=== PATIENT | male | born 1960 | race Two or more races ===

== ENCOUNTER 2016-11-27 16:55 | Inpatient (IN) | payer OTHER ==
[2016-11-27 17:38] VITALS: BMI 29.7
--- NOTE | 2016-11-27 18:26 | HP ---
Admission ROS S - [facility] Chief Complaint: I WANT TO GO TO REHAB Allergies/Adverse Reactions: Allergies Allergy/AdvReac Type Severity Reaction Status Date / Time No Known Allergies Allergy Verified 11/27/16 17:50 History of Present Illness: 56 YEARS OLD MALE WITH LONG HISTORY OF ALCOHOL NICOTINE DEPENDENCE DENIES MEDICAL ISSUE HAS SCHIZOPHRENIA IS ADMITTED TO REHAB Exam Limitations: No Limitations - Ebola screening Have you traveled outside of the country in the last 21 days: No Have you had contact with anyone from an Ebola affected area: No Have you been sick,other than usual withdrawal symptoms: No Do you have a fever: No - Review of Systems Constitutional: No Symptoms Reported EENT: reports: No Symptoms Reported Respiratory: reports: No Symptoms reported Cardiac: reports: No Symptoms Reported GI: reports: No Symptoms Reported : reports: No Symptoms Reported Musculoskeletal: reports: No Symptoms Reported Integumentary: reports: No Symptoms Reported Neuro: reports: No Symptoms reported Endocrine: reports: No Symptoms Reported Hematology: reports: No Symptoms Reported Psychiatric: reports: No Sypmtoms Reported, Judgement Intact, Mood/Affect Appropiate, Orientated x3 Other Systems: Reviewed and Negative Patient History - Patient Medical History Hx Anemia: No Hx Asthma: No Hx Chronic Obstructive Pulmonary Disease (COPD): No Hx Cancer: No Hx Cardiac Disorders: No Hx Congestive Heart Failure: No Hx Hypertension: No Hx Hypercholesterolemia: No Hx Pacemaker: No HX Cerebrovascular Accident: No Hx Seizures: No Hx Dementia: No Hx Diabetes: No Hx Gastrointestinal Disorders: No Hx Liver Disease: No Hx Genitourinary Disorders: No Hx Sexually Transmitted Disorders: No Hx Renal Disease (ESRD): No Hx Thyroid Disease: No Hx Human Immunodeficiency Virus (HIV): No (NEGATIVE HX) Hx Hepatitis C: No Hx Depression: No Hx Suicide Attempt: No Hx Bipolar Disorder: No Hx Schizophrenia: Yes - Patient Surgical History Past Surgical History: Yes Hx Neurologic Surgery: No Hx Cataract Extraction: No Hx Cardiac Surgery: No Hx Lung Surgery: No Hx Breast Surgery: Yes (R breast cyst removed) Hx Breast Biopsy: No Hx Abdominal Surgery: No Hx Appendectomy: No Hx Cholecystectomy: No Hx Genitourinary Surgery: No Hx Orthopedic Surgery: No Other Surgical History: bunionectomy 07/2015 Anesthesia Reaction: No - PPD History Previous Implant?: Yes Documented Results: Negative w/proof Implanted On Prior R Admission?: Yes Date: 05/01/16 Results: 0mm PPD to be Administered?: No - Smoking Cessation Smoking history: Current every day smoker Have you smoked in the past 12 months: Yes Aproximately how many cigarettes per day: 2 Cigars Per Day: 0 Hx Chewing Tobacco Use: No Initiated information on smoking cessation: Yes 'Breaking Loose' booklet given: 11/27/16 - Substance & Tx. History Hx Alcohol Use: Yes Hx Substance Use: Yes Substance Use Type: Alcohol, Cocaine Hx Substance Use Treatment: Yes (04/26/2016-05/21/2016) - Substances Abused Alcohol Route: Oral Frequency: Daily Amount used: 10 CANS Age of first use: 17 Date of Last Use: 11/22/16 Heroin Route: Inhalation Frequency: Daily Amount used: 1 BAG Age of first use: 21 Date of Last Use: 11/22/16 Cocaine Route: Smoking Frequency: Daily Amount used: 20 BAGS Age of first use: 17 Date of Last Use: 11/22/16 Family Disease History - Family Disease History Family Disease History: Diabetes: Mother, CA: Sister (), Other: Father ( NO CONTACT), Brother (alcohol) Admission Physical Exam [facility] - Vital Signs Vital Signs: Vital Signs - 24 hr 11/27/16 17:36 Temperature 98.8 F Pulse Rate 96 H Respiratory 20 Rate Blood Pressure 120/64 - Physical General Appearance: Yes: No Apparent Distress, Nourished, Appropriately Dressed HEENTM: Yes: Hearing grossly Normal, Normal ENT Inspection, Normocephalic, Normal Voice Respiratory: Yes: Chest Non-Tender, Lungs Clear, Normal Breath Sounds, No Respiratory Distress, No Accessory Muscle Use Neck: Yes: Supple, Trachea in good position Breast: Yes: Breasts Symetrical Cardiology: Yes: Regular Rhythm, S1, S2, Tachycardia Abdominal: Yes: Normal Bowel Sounds, Non Tender, Soft Genitourinary: Yes: Within Normal Limits Back: Yes: Normal Inspection Musculoskeletal: Yes: full range of Motion, Gait Steady Extremities: Yes: Normal Capillary Refill, Normal Inspection, Normal Range of Motion, Non-Tender Neurological: Yes: Fully Oriented, Alert, Motor Strength 5/5, Normal Response, Depressed Affect Integumentary: Yes: Normal Color, Warm Lymphatic: Yes: Within Normal Limits - Diagnostic (1) Schizoaffective disorder Current Visit: Yes Status: Suspected Qualifiers: Schizoaffective disorder type: bipolar Qualified Code(s): F25.0 - Schizoaffective disorder, bipolar type (2) Nicotine dependence Current Visit: Yes Status: Acute Qualifiers: Nicotine product type: cigarettes Substance use status: in withdrawal Qualified Code(s): F17.213 - Nicotine dependence, cigarettes, with withdrawal (3) Alcohol dependence with uncomplicated withdrawal Current Visit: Yes Status: Acute (4) Cocaine dependence, uncomplicated Current Visit: Yes Status: Chronic Cleared for Admission [facility] - Detox or Rehab [facility] Level of Care: Observation Bed Detox Regimen/Protocol: Not Applicable Claeared for Rehab Admission: Yes [facility] Breath Alcohol Content Breath Alcohol Content: 0 Urine Drug Screen - Results Drug Screen Negative: No Urine Drug Screen Results: CARINE-Cocaine
[2016-11-27] MEDS ORDERED: MAG HYDROX/AL HYDROX/SIMETH 30 ML UNIT-DOSE CUP PO PRN (18:32)
[2016-11-27] MEDS ORDERED: NICOTINE POLACRILEX 2 MG GUM BC PRN (18:32)
[2016-11-27] MEDS ORDERED: MAGNESIUM CITRATE 300 ML BOTTLE PO PRN (18:32)
[2016-11-27] MEDS ORDERED: LOPERAMIDE HCL 2 MG CAPSULE PO PRN (18:32)
[2016-11-27] MEDS ORDERED: guaiFENesin/D-METHORPHAN HB 10 ML UNIT-DOSE CUPS PO PRN (18:32)
[2016-11-27] MEDS ORDERED: NICOTINE 14 MG/24 HOURS TOPICAL PATCH TD PRN (18:32)
[2016-11-27] MEDS ORDERED: ACETAMINOPHEN 325 MG TABLET (FP) PO PRN (18:32)
[2016-11-27] MEDS ORDERED: MAGNESIUM HYDROX 2400MG/30ML ORAL SUSPENSION 30 ML CUP PO PRN (18:32)
[2016-11-27] MEDS ORDERED: diphenhydrAMINE HCL 50 MG CAPSULE PO PRN (18:32)
[2016-11-27] MEDS ORDERED: P-EPHED 60MG/TRIPROLIDI 2.5MG TABLET PO PRN (18:32)
[2016-11-27] MEDS ORDERED: MENTHOL/PHENOL 1 EACH UD MM PRN (18:32)
[2016-11-27] MEDS ORDERED: hydrOXYzine PAMOATE 50 MG CAPSULE (FP) PO PRN (18:32)
[2016-11-27 21:07] LABS: URINE APPEARANCE CLEAR; URINE BILIRUBIN NEGATIVE (NEGATIVE); URINE BLOOD NEGATIVE (NEGATIVE); URINE COLOR AMBER; URINE GLUCOSE (UA) NEGATIVE (NEGATIVE); URINE KETONE TRACE (NEGATIVE); URINE LEUK ESTERASE NEGATIVE (NEGATIVE); URINE NITRITE NEGATIVE (NEGATIVE); URINE UROBILINOGEN NEGATIVE E.U./dl (0.2-1.0)
[2016-11-27 21:37] LABS: URINE PROTEIN 1+ (NEGATIVE)
[2016-11-27 21:39] LABS: URINE MUCUS MANY; URINE RBC 1 /hpf (0-3); URINE WBC <1 /hpf (3-5)
[2016-11-27] MEDS: QUEtiapine FUMARATE 100 MG TABLET (FP) PO SCH (21:41)
[2016-11-27] MEDS: THIAMINE HCL 100 MG TABLET (FP) PO SCH (21:42)
[2016-11-27] MEDS: QUEtiapine FUMARATE 25 MG TABLET (FP) PO SCH (21:42)
--- NOTE | 2016-11-28 09:56 | HP ---
Psychiatrist Admission - Data Date of interview: 11/28/16 Admission source: Self-referred Identifying data: This is one of the multiple [facility] for this 56 years old single Black male, unemployed on SSI, domiciled living with his mother Medical History: Significant for history of surgery for bunion removal right foot in Jul 2015 & removal of cyst right breast in 2000. Smokes 2 cigarettes daily Psychiatric History: Reports that he was diagnosed with ADHD, Mental Retardation , Schizophrenia, OCD, Anxiety, Depression and Personality Disorder. Reports multiple psychiatric admissions to various institutions, notably [facility] many times, [facility], [place], [facility] [place], [facility]. Reports receiving OPD care at [facility] at [address] [place] and he is prescribed Wellbutrin XL 300 mg po daily, Fluvoxamine 50 mg po HS, Seroquel 25 mg BID & 100 mg HS. When asked about history of suicide attempt, he denies any but told advertising copy writer that because of homelessness, on many occasions, he would tell stahh at hospital that he is suicidal in order to get admitted. At present, reports doing well and sleeping well with help of medications. Denies experiencing psychotic, manic or depressive symptoms as well as Si/Hi at present Physical/Sexual Abuse/Trauma History: Denies history of emotional, physical or sexual abuse as well as DV relationship Additional Comment: Reports history of multiple arrests including 4 felony convictions. Denies being on parole/probation at present Vital Signs: Vital Signs - 24 hr 11/27/16 11/28/16 11/28/16 17:36 00:30 03:30 Temperature 98.8 F Pulse Rate 96 H Respiratory 20 18 18 Rate Blood Pressure 120/64 11/28/16 06:49 Temperature 98.1 F Pulse Rate 80 Respiratory 18 Rate Blood Pressure 126/78 Allergies/Adverse Reactions: Allergies Allergy/AdvReac Type Severity Reaction Status Date / Time No Known Allergies Allergy Verified 11/27/16 17:50 Date of last physical exam: 11/27/16 Concur with the findings of this exam: Yes - Substance Abuse/Tx History Hx Alcohol Use: Yes Hx Substance Use: Yes Substance Use Type: Alcohol (Started drinking alcohol at age 17, consumes 10 cans daily. Last drink on 11/22/16), Cocaine (Started smoking crack cocaine at age 17, consumes 20 bags daily. Last smoked on 11/22/16), Heroin (Started using heroin at age 21, consumes one bag daily. Last used on 11/22/16) Hx Substance Use Treatment: Yes (2 previous inpt detox & 5 inpt rehab @ [facility]) - Admission Criteria Previous failed treatment: Yes Poor recovery environment: Yes Comorbidities: Yes Lacks judgement: Yes Mental Status Exam - Mental Status Exam Alert and Oriented to: Time, Place, Person Cognitive Function: Fair Patient Appearance: Well Groomed Mood: Hopeful, Euthymic Affect: Appropriate Patient Behavior: Cooperative Speech Pattern: Clear Voice Loudness: Normal Thought Process: Intact, Goal Oriented Thought Disorder: Present Hallucinations: Denies Suicidal Ideation: Denies Homicidal Ideation: Denies Insight/Judgement: Fair Sleep: Fair (with the pills) Appetite: Good Muscle strength/Tone: Normal Gait/Station: Normal Psychiatric Findings - Problem List (Waldo 1, 2,3) (1) Alcohol dependence with uncomplicated withdrawal Current Visit: Yes Status: Acute (2) Cocaine dependence, uncomplicated Current Visit: Yes Status: Chronic (3) Opioid abuse Current Visit: Yes Status: Acute (4) Nicotine dependence Current Visit: Yes Status: Acute Qualifiers: Nicotine product type: cigarettes Substance use status: in withdrawal Qualified Code(s): F17.213 - Nicotine dependence, cigarettes, with withdrawal (5) Schizoaffective disorder Current Visit: Yes Status: Suspected Qualifiers: Schizoaffective disorder type: bipolar Qualified Code(s): F25.0 - Schizoaffective disorder, bipolar type (6) OCD (obsessive compulsive disorder) Current Visit: No Status: Acute - Initial Treatment Plan Initial Treatment Plan: 1) Continue Wellbutrin XL 300 mg po daily, Seroquel 25 mg BID & 100 mg HS, Luvox 50 mg po HS. 2) Monitor progress
[2016-11-28 09:59] LABS: MCH 32.8 pg (25.7-33.7); MCHC 33.6 g/dl (32.0-35.9); MEAN CELL VOLUME 97.6 fl (80-96); MEAN PLT VOLUME 8.4 fl (7.5-11.1); PLATELET COUNT 197 K/MM3 (134-434); RDW 12.9 % (11.9-15.9); WHITE BLOOD COUNT 6.6 K/mm3 (4.0-10.0)
[2016-11-28 10:06] LABS: ALBUMIN 3.7 g/dl (3.4-5.0); ANION GAP 8 (8-16); CALCIUM 8.7 mg/dL (8.5-10.1); CO2 28 mmol/L (21-32); GLUCOSE,RANDOM 110 mg/dL (74-106)
[2016-11-28 10:09] LABS: ALK PHOS 108 U/L (45-117); BILIRUBIN,TOTAL 0.3 mg/dL (0.2-1.0); COCKROFT - GAULT 99.68; SGOT/AST 22 U/L (15-37); SGPT/ALT 27 U/L (12-78); TOT PROT 6.5 g/dl (6.4-8.2)
[2016-11-28] MEDS ORDERED: LABETALOL HCL 5 MG/1 ML (100MG/20 ML VIAL) ONE (10:11)
[2016-11-28] MEDS: PRENATAL VITAMINS W/ FOLIC ACID TABLET (FP) PO SCH (10:25)
[2016-11-28] MEDS: LORATADINE 10 MG TABLET PO SCH (10:25)
[2016-11-28] MEDS: QUEtiapine FUMARATE 25 MG TABLET (FP) PO SCH ×2 (10:26→21:34)
--- NOTE | 2016-11-28 10:36 | EKG ---
Test Reason : Blood Pressure : / mmHG Vent. Rate : 089 BPM Atrial Rate : 089 BPM P-R Int : 204 ms QRS Dur : 074 ms QT Int : 364 ms P-R-T Axes : 064 032 026 degrees QTc Int : 442 ms NORMAL SINUS RHYTHM NORMAL ECG NO PREVIOUS ECGS AVAILABLE Confirmed by WES CRUZ MD ([id number]) on 11/28/2016 10:36:21 AM Referred By: Confirmed By:WES CRUZ MD
[2016-11-28 11:14] LABS: HIV 1 & 2 AB NEGATIVE; HIV 1 AGp24 NEGATIVE
[2016-11-28] MEDS: THIAMINE HCL 100 MG TABLET (FP) PO SCH (21:33)
[2016-11-28] MEDS: QUEtiapine FUMARATE 100 MG TABLET (FP) PO SCH (21:34)
[2016-11-29] MEDS: LORATADINE 10 MG TABLET PO SCH (10:06)
[2016-11-29] MEDS: PRENATAL VITAMINS W/ FOLIC ACID TABLET (FP) PO SCH (10:06)
[2016-11-29] MEDS: QUEtiapine FUMARATE 25 MG TABLET (FP) PO SCH ×2 (10:06→21:44)
[2016-11-29] MEDS: QUEtiapine FUMARATE 100 MG TABLET (FP) PO SCH (21:44)
[2016-11-29] MEDS: THIAMINE HCL 100 MG TABLET (FP) PO SCH (21:44)
[2016-11-29] MEDS: IBUPROFEN 400 MG TABLET (FP) PO PRN (22:33)
[2016-11-30] MEDS: LORATADINE 10 MG TABLET PO SCH (10:24)
[2016-11-30] MEDS: QUEtiapine FUMARATE 25 MG TABLET (FP) PO SCH ×2 (10:24→21:39)
[2016-11-30] MEDS: PRENATAL VITAMINS W/ FOLIC ACID TABLET (FP) PO SCH (10:24)
[2016-11-30] MEDS: QUEtiapine FUMARATE 100 MG TABLET (FP) PO SCH (21:39)
[2016-11-30] MEDS: THIAMINE HCL 100 MG TABLET (FP) PO SCH (21:39)
[2016-12-01] MEDS: PRENATAL VITAMINS W/ FOLIC ACID TABLET (FP) PO SCH (10:13)
[2016-12-01] MEDS: LORATADINE 10 MG TABLET PO SCH (10:14)
[2016-12-01] MEDS: QUEtiapine FUMARATE 25 MG TABLET (FP) PO SCH ×2 (10:14→21:38)
[2016-12-01] MEDS: QUEtiapine FUMARATE 100 MG TABLET (FP) PO SCH (21:38)
[2016-12-01] MEDS: THIAMINE HCL 100 MG TABLET (FP) PO SCH (21:38)
[2016-12-02] MEDS: PRENATAL VITAMINS W/ FOLIC ACID TABLET (FP) PO SCH (10:24)
[2016-12-02] MEDS: QUEtiapine FUMARATE 25 MG TABLET (FP) PO SCH ×2 (10:25→21:40)
[2016-12-02] MEDS: LORATADINE 10 MG TABLET PO SCH (10:26)
[2016-12-02] MEDS: QUEtiapine FUMARATE 100 MG TABLET (FP) PO SCH (21:39)
[2016-12-02] MEDS: THIAMINE HCL 100 MG TABLET (FP) PO SCH (21:39)
[2016-12-03] MEDS: QUEtiapine FUMARATE 25 MG TABLET (FP) PO SCH ×2 (10:06→21:46)
[2016-12-03] MEDS: LORATADINE 10 MG TABLET PO SCH (10:06)
[2016-12-03] MEDS: PRENATAL VITAMINS W/ FOLIC ACID TABLET (FP) PO SCH (10:06)
[2016-12-03] MEDS: THIAMINE HCL 100 MG TABLET (FP) PO SCH (21:45)
[2016-12-03] MEDS: QUEtiapine FUMARATE 100 MG TABLET (FP) PO SCH (21:46)
[2016-12-03] MEDS: IBUPROFEN 400 MG TABLET (FP) PO PRN (21:46)
[2016-12-04] MEDS: PRENATAL VITAMINS W/ FOLIC ACID TABLET (FP) PO SCH (10:20)
[2016-12-04] MEDS: LORATADINE 10 MG TABLET PO SCH (10:20)
[2016-12-04] MEDS: QUEtiapine FUMARATE 25 MG TABLET (FP) PO SCH ×2 (10:20→21:36)
--- NOTE | 2016-12-04 13:05 | PN ---
[facility] Progress Note Note: patient has been cutting nail of right 2nd didit,left 5th digit of toe,2 weeks ago stated nail of right 2nd digit nail became black and left 5th digit dorsalis pedis both feet strong s/p bunionectomy right rx bacitracin ointment bid advise follow up with pmd and slide fastener chain assembler upon discharge
--- NOTE | 2016-12-04 13:16 | PN ---
[facility] Progress Note Note: addendum initail glucose is 110,will do fasting glucose in am,bgm daily mother has dm history
[2016-12-04] MEDS ORDERED: BACITRACIN 0.9 GM PACKET ONE (13:54)
[2016-12-04] MEDS: BACITRACIN 0.9 GM PACKET TP SCH ×2 (15:00→21:36)
[2016-12-04] MEDS: QUEtiapine FUMARATE 100 MG TABLET (FP) PO SCH (21:36)
[2016-12-04] MEDS: THIAMINE HCL 100 MG TABLET (FP) PO SCH (21:36)
[2016-12-05] MEDS: QUEtiapine FUMARATE 25 MG TABLET (FP) PO SCH ×2 (10:20→22:23)
[2016-12-05] MEDS: PRENATAL VITAMINS W/ FOLIC ACID TABLET (FP) PO SCH (10:20)
[2016-12-05] MEDS: BACITRACIN 0.9 GM PACKET TP SCH ×2 (10:20→22:23)
[2016-12-05] MEDS: LORATADINE 10 MG TABLET PO SCH (10:20)
[2016-12-05] MEDS ORDERED: PT OWN MED DRAWER 7, Y5N ONE (11:18)
[2016-12-05] MEDS: IBUPROFEN 400 MG TABLET (FP) PO PRN (17:35)
[2016-12-05] MEDS: THIAMINE HCL 100 MG TABLET (FP) PO SCH (22:22)
[2016-12-05] MEDS: QUEtiapine FUMARATE 100 MG TABLET (FP) PO SCH (22:23)
[2016-12-06] MEDS: LORATADINE 10 MG TABLET PO SCH (10:18)
[2016-12-06] MEDS: PRENATAL VITAMINS W/ FOLIC ACID TABLET (FP) PO SCH (10:18)
[2016-12-06] MEDS: QUEtiapine FUMARATE 25 MG TABLET (FP) PO SCH ×2 (10:19→21:55)
[2016-12-06] MEDS: BACITRACIN 0.9 GM PACKET TP SCH ×2 (10:19→21:55)
[2016-12-06] MEDS: QUEtiapine FUMARATE 100 MG TABLET (FP) PO SCH (21:55)
[2016-12-06] MEDS: THIAMINE HCL 100 MG TABLET (FP) PO SCH (21:55)
[2016-12-07] MEDS: QUEtiapine FUMARATE 25 MG TABLET (FP) PO SCH ×2 (10:09→21:59)
[2016-12-07] MEDS: LORATADINE 10 MG TABLET PO SCH (10:09)
[2016-12-07] MEDS: BACITRACIN 0.9 GM PACKET TP SCH ×2 (10:09→21:59)
[2016-12-07] MEDS: PRENATAL VITAMINS W/ FOLIC ACID TABLET (FP) PO SCH (10:09)
[2016-12-07] MEDS: IBUPROFEN 400 MG TABLET (FP) PO PRN (15:42)
[2016-12-07] MEDS ORDERED: P-EPHED 60MG/TRIPROLIDI 2.5MG TABLET PO PRN (15:48)
[2016-12-07] MEDS: THIAMINE HCL 100 MG TABLET (FP) PO SCH (21:57)
[2016-12-07] MEDS: SODIUM CHLORIDE NASAL SPRAY 44 ML BOTTLE NS SCH (21:58)
[2016-12-07] MEDS: QUEtiapine FUMARATE 100 MG TABLET (FP) PO SCH (21:58)
[2016-12-08] MEDS: LORATADINE 10 MG TABLET PO SCH (10:04)
[2016-12-08] MEDS: BACITRACIN 0.9 GM PACKET TP SCH ×2 (10:04→22:00)
[2016-12-08] MEDS: QUEtiapine FUMARATE 25 MG TABLET (FP) PO SCH ×2 (10:04→21:36)
[2016-12-08] MEDS: PRENATAL VITAMINS W/ FOLIC ACID TABLET (FP) PO SCH (10:04)
[2016-12-08] MEDS: SODIUM CHLORIDE NASAL SPRAY 44 ML BOTTLE NS SCH ×2 (10:04→22:00)
[2016-12-08] MEDS: THIAMINE HCL 100 MG TABLET (FP) PO SCH (21:34)
[2016-12-08] MEDS: IBUPROFEN 400 MG TABLET (FP) PO PRN (21:35)
[2016-12-08] MEDS: QUEtiapine FUMARATE 100 MG TABLET (FP) PO SCH (21:36)
[2016-12-09] MEDS: LORATADINE 10 MG TABLET PO SCH (10:18)
[2016-12-09] MEDS: PRENATAL VITAMINS W/ FOLIC ACID TABLET (FP) PO SCH (10:18)
[2016-12-09] MEDS: BACITRACIN 0.9 GM PACKET TP SCH ×2 (10:18→21:46)
[2016-12-09] MEDS: QUEtiapine FUMARATE 25 MG TABLET (FP) PO SCH ×2 (10:18→21:47)
[2016-12-09] MEDS: SODIUM CHLORIDE NASAL SPRAY 44 ML BOTTLE NS SCH ×2 (10:19→21:48)
--- NOTE | 2016-12-09 12:50 | PN ---
[facility] Progress Note Note: blackish of second digit ,bgm normal,no change patient will go to [facility] for follow up and evaluation upon discharge on fri12/11/16
[2016-12-09] MEDS: IBUPROFEN 400 MG TABLET (FP) PO PRN (15:45)
[2016-12-09] MEDS: QUEtiapine FUMARATE 100 MG TABLET (FP) PO SCH (21:47)
[2016-12-09] MEDS: THIAMINE HCL 100 MG TABLET (FP) PO SCH (21:47)
[2016-12-10] MEDS: QUEtiapine FUMARATE 25 MG TABLET (FP) PO SCH ×2 (10:17→22:02)
[2016-12-10] MEDS: BACITRACIN 0.9 GM PACKET TP SCH ×2 (10:17→22:02)
[2016-12-10] MEDS: PRENATAL VITAMINS W/ FOLIC ACID TABLET (FP) PO SCH (10:17)
[2016-12-10] MEDS: SODIUM CHLORIDE NASAL SPRAY 44 ML BOTTLE NS SCH ×2 (10:18→22:03)
[2016-12-10] MEDS: LORATADINE 10 MG TABLET PO SCH (10:18)
[2016-12-10] MEDS: THIAMINE HCL 100 MG TABLET (FP) PO SCH (22:02)
[2016-12-10] MEDS: QUEtiapine FUMARATE 100 MG TABLET (FP) PO SCH (22:02)
[2016-12-11 07:48] VITALS: BP 140/70; PULSE 95; TEMP 98.2
--- NOTE | 2016-12-11 09:29 | PN ---
Psychiatric Progress Note Vital Signs: Vital Signs Period Temp Pulse Resp BP Sys/Armijo Pulse Ox Last 24 Hr 98.2 F 95 18-20 140/70 Date of Session: 12/11/16 Chief Complaint:: Discharge Note HPI: Patient addressing Alcohol and Cocaine Dependence, Opoid Abuse comorbid with Nicotine Dependence, Schizoaffective Disorder and OCD Current Medications: Active Medications Generic Name Dose Route Start Last Admin Trade Name Freq PRN Reason Stop Dose Admin Acetaminophen 650 mg 11/27/16 18:32 12/05/16 22:22 Tylenol - PO 650 mg Q4H PRN Administration PAIN Al Hydroxide/Mg Hydroxide 30 ml 11/27/16 18:32 Mylanta Oral Suspension - PO Q6H PRN DYSPEPSIA Bacitracin 0.9 gm 12/04/16 13:59 12/10/16 22:02 Bacitracin - TP 0.9 gm BID KENIA Administration Bupropion HCl 300 mg 11/28/16 10:00 12/10/16 10:17 Wellbutrin Xl - PO 300 mg DAILY KENIA Administration Diphenhydramine HCl 50 mg 11/27/16 18:32 Benadryl - PO HSMR1 PRN INSOMNIA Eucalyptus/Menthol/Phenol/Sorbitol 1 each 11/27/16 18:32 Cepastat Lozenge - MM Q4H PRN SORE THROAT Fluvoxamine Maleate 50 mg 11/27/16 22:00 12/10/16 22:02 Luvox - PO 50 mg HS KENIA Administration Guaifenesin 10 ml 11/27/16 18:32 Robitussin Dm - PO Q6H PRN COUGH Hydroxyzine Pamoate 50 mg 11/27/16 18:32 Vistaril - PO Q4H PRN AGITATION Ibuprofen 400 mg 11/27/16 18:32 12/09/16 15:45 Motrin - PO 400 mg Q6H PRN Administration SEVERE PAIN Loperamide HCl 4 mg 11/27/16 18:32 Imodium - PO Q6H PRN DIARRHEA Loratadine 10 mg 11/28/16 10:00 12/10/16 10:18 Claritin - PO 10 mg DAILY KENIA Administration Magnesium Citrate 300 ml 11/27/16 18:32 Citroma - PO Q48H PRN CONSTIPATION Magnesium Hydroxide 30 ml 11/27/16 18:32 Milk Of Magnesia - PO DAILY PRN CONSTIPATION Nicotine 14 mg 11/27/16 18:32 Nicoderm Patch - TD DAILY PRN WITHDRAWAL(CONT SUBST) Nicotine Polacrilex 2 mg 11/27/16 18:32 Nicorette Gum - BC Q2H PRN NICOTINE REPLACEMENT RX Multivit/Folic Acid/Iron 1 tab 11/28/16 10:00 12/10/16 10:17 Vitamins (Sjr) - PO 1 tab DAILY KENIA Administration Pseudoephedrine/Triprolidine 1 combo 12/07/16 15:48 Actifed - PO TID PRN NASAL CONGESTION Quetiapine Fumarate 100 mg 11/27/16 22:00 12/10/16 22:02 Seroquel - PO 100 mg HS KENIA Administration Quetiapine Fumarate 25 mg 11/27/16 22:00 12/10/16 22:02 Seroquel - PO 25 mg BID KENIA Administration Sodium Chloride 2 spray 12/07/16 22:00 12/10/16 22:03 [place] Nasal [place] - NS 2 spray BID KENIA Administration Thiamine HCl 100 mg 11/27/16 22:00 12/10/16 22:02 Vitamin B1 - PO 100 mg HS KENIA Administration Current Side Effect: No Lab tests ordered: Yes Lab tests reviewed: Yes Provider note:: Patient has completed this program today. He has met his treatment goals and will continue to address his issues in outpatient treatment at [facility]. Told data analyst report writer that from his participation in this program, he has learned the importance of compliance with outpatient treatment in order to maintain abstinence. He responded well to Wellbutrin XL 300 mg po daily, Seroquel 25 mg BID & 100 mg HS and Luvox 50 mg po HS. Scripts for 30 days supply of these medications are electronically transmitted to [facility] at [address] [place] [address]. He is stable for discharge today Total face to face time:: 35 Mental Status Exam - Mental Status Exam Alert and Oriented to: Time, Place, Person Cognitive Function: Fair Patient Appearance: Well Groomed Mood: Hopeful, Euthymic Affect: Appropriate Patient Behavior: Cooperative Speech Pattern: Clear Voice Loudness: Normal Thought Process: Intact, Goal Oriented Thought Disorder: Not Present Hallucinations: Denies Suicidal Ideation: Denies Homicidal Ideation: Denies Insight/Judgement: Fair Sleep: Fair Appetite: Good Muscle strength/Tone: Normal Gait/Station: Normal Psychiatric Treatment Plan - Problem List (1) Alcohol dependence with uncomplicated withdrawal Current Visit: Yes (2) Cocaine dependence, uncomplicated Current Visit: Yes (3) Opioid abuse Current Visit: Yes (4) Nicotine dependence Current Visit: Yes Qualifiers: Nicotine product type: cigarettes Substance use status: in withdrawal Qualified Code(s): F17.213 - Nicotine dependence, cigarettes, with withdrawal (5) Schizoaffective disorder Current Visit: Yes Qualifiers: Schizoaffective disorder type: bipolar Qualified Code(s): F25.0 - Schizoaffective disorder, bipolar type (6) OCD (obsessive compulsive disorder) Current Visit: No Initial treatment plan: Patient is discharged today [facility]
[2016-12-11] MEDS: BACITRACIN 0.9 GM PACKET TP SCH (09:48)
[2016-12-11] MEDS: QUEtiapine FUMARATE 25 MG TABLET (FP) PO SCH (09:49)
[2016-12-11] MEDS: LORATADINE 10 MG TABLET PO SCH (09:49)
[2016-12-11] MEDS: PRENATAL VITAMINS W/ FOLIC ACID TABLET (FP) PO SCH (09:49)
[2016-12-11] MEDS: SODIUM CHLORIDE NASAL SPRAY 44 ML BOTTLE NS SCH (09:50)
[2016-12-11] MEDS ORDERED: PT OWN MED DRAWER 7, Y5N ONE (09:57)
== END 2016-12-11 10:15 | disposition home or self-care (01) | DRG 772 ==
LOC: YASAS 16:55 → Y3W 18:23
PROVIDERS: ADMIT Psychiatry & Neurology Psychiatry; ATTEND Psychiatry & Neurology Psychiatry
PROC: HZ42ZZZ Group Counseling for Substance Abuse Treatment, Cognitive-Behavioral (ICD-10-PCS; principal; 2016-11-27)
DX: F10.20 Alcohol dependence, uncomplicated (principal); F14.20 Cocaine dependence, uncomplicated; F11.10 Opioid abuse, uncomplicated; F17.210 Nicotine dependence, cigarettes, uncomplicated; F25.0 Schizoaffective disorder, bipolar type; F42.9 Obsessive-compulsive disorder, unspecified; L60.8 Other nail disorders
CPT/HCPCS: 36415; 80053; 81003; 81015; 82947; 85027; 86593; 87389; 93005; 93010